=== PATIENT | male | born 1985 | race Caucasian/White ===

== ENCOUNTER 2019-03-28 00:29 | Emergency (ER) | payer SELFPAY ==
[~2019-03-28] VITALS: Ht 170.2 cm; Wt 100.0 kg
[2019-03-28 00:35] VITALS: BP 156/86; PULSE 79; RESP 18; Ht 170.2 cm; Wt 100.0 kg
[2019-03-28] MEDS ORDERED: KETOROLAC 30 MG INJ IM STA (01:55)
[2019-03-28] MEDS ORDERED: CYCL10TA7 PO (01:58)
[2019-03-28] MEDS ORDERED: MED4DP PO (01:58)
[2019-03-28] MEDS ORDERED: IBUP-1542 PO (01:58)
[2019-03-28] MEDS ORDERED: CYCLOBENZAPRINE 10 MG TAB PO ONE (02:00)
--- NOTE | 2019-03-28 04:52 | ERD ---
ER Documentation Chief Complaint Chief Complaint PATIENT BIB SELF, C/O NECK PAIN RADIATING TO SHOULDER X 1 MONTH HPI 34-year-old male presenting to the ED for neck pain with radiating symptoms to his right shoulder x1 month. Patient denies any injury. Patient has never had a neck or back injury. Patient states the pain is a 10 out of 10. Patient denies any allergies to medications. Patient denies any shortness of breath chest pain headache fever chills nausea or vomiting. Patient states the symptoms are worse if he turns his neck the wrong way. Muscle wasting loss of weight or weakness in the extremity. Patient states the symptoms come and go and lasts only a few seconds. ROS All systems reviewed and are negative except as per history of present illness. Medications Home Meds Active Scripts Cyclobenzaprine Hcl* (Cyclobenzaprine Hcl*) 10 Mg Tablet, 10 MG PO TID, #15 TAB Prov:RAMAN VASQUEZ PA-C 03/28/19 Ibuprofen* (Motrin*) 600 Mg Tab, 600 MG PO Q6, #30 TAB Prov:RAMAN VASQUEZ PA-C 03/28/19 Methylprednisolone* (Medrol* DOSE PACK) 4 Mg/Dose-Pack Tab.ds.pk, 4 MG PO . DIRECTED for 10 Days, PACKET Prov:RAMAN VASQUEZ PA-C 03/28/19 Allergies Allergies: Coded Allergies: No Known Allergy (Unverified , 03/28/19) PMhx/Soc Medical and Surgical Hx: pt denies Medical Hx, pt denies Surgical Hx Hx Alcohol Use: Yes (OCCASIONALLY) Hx Substance Use: No Hx Tobacco Use: No Smoking Status: Never smoker FmHx Family History: No diabetes, No coronary disease, No other Physical Exam Vitals Vital Signs Date Temp Pulse Resp B/P (MAP) Pulse Ox O2 O2 Flow FiO2 Time Delivery Rate 03/28/19 97.0 79 18 156/86 98 00:35 (109) Physical Exam Const: Moderate distress Neck: Full range of motion. No meningismus. Ihsan's compression provokes symptoms, muscle spasm noted right lateral neck muscles. Resp: Clear to auscultation bilaterally Cardio: Regular rate and rhythm, no murmurs Abd: Soft, non tender, non distended. Normal bowel sounds Ext: No cyanosis, or edema, patient has 5 out of 5 C3, C4, C5 myotome examination. Patient has no decreased sensation in upper extremities Results 24 hrs Current Medications Medications Dose Sig/Dorcas Start Time Status Last (Trade) Ordered Route PRN Stop Time Admin Dose Reason Admin Ketorolac 30 mg ONCE STAT 03/28/19 DC 03/28/19 Tromethamine IM 01:55 02:18 (Toradol) 03/28/19 01:57 10 mg ONCE ONCE 03/28/19 DC 03/28/19 Cyclobenzapri PO 02:00 02:17 ne HCl 03/28/19 02:01 (Flexeril) Procedures/MDM Medications given in ER: Cyclobenzaprine Toradol Patient tolerated medication well with no adverse reactions. Patient reported improvement in pain. Medical decision makin-year-old male presenting to the ED for neck pain with radiating symptoms to his right shoulder. Patient denies any traumatic injury. There is no stairstepping felt on palpation to the cervical spine. Patient does have neck spasm on the right side the patient is able to move his neck and has full range of motion. Patient has a little bit of pain when he turns his neck to the right. Ihsan compression provoked to the patient's symptoms. At this time I have low suspicion for cervical fracture, meningitis. The patient was given cyclobenzaprine and Toradol in the ED. Upon reevaluation the patient appears to be doing much better. The patient will be treated outpatient with cyclobenzaprine and Motrin and Medrol Dosepak. Advised patient follow-up primary care provider in 1 to 2 days regarding this visit. I advised patient if symptoms worsen return to ER immediately. Patient is in compliant with the treatment plan had no further questions on discharge Prescription for home: Motrin Cyclobenzaprine Medrol Dosepak I have discussed with the patient proper use and common side effects to expert with the medication . I advised the patient/family to speak with the pharm acist dispensing the medication to be advised of any potential drug interactions with other medication or supplements they may be taking. Discharge: At this time, patient is stable for discharge and outpatient management. I have instructed the patient to follow-up with his\her primary care physician in 1 to 2 days. I have discussed with the patient the possibility of needing to see a specialist for further work-up and imaging studies if symptoms persist. I have instructed the patient to promptly return to the ER for any new or worsening symptoms including increased pain, fever, nausea, vomiting, weakness or LOC. The patient and\or family expressed understanding of and agreement with this plan. All questions were answered. Home care instructions were provided. Disclaimer: Inadvertent spelling and grammatical errors are likely due to EHR\dictation software use and do not reflect on the overall quality of patient care. Also, please note that the electronic time recorded on the note does not necessarily reflect the actual time of the patient encounter. Departure Diagnosis: Primary Impression: Neck pain Additional Impression: Muscle spasms of neck Condition: Stable Patient Instructions: Neck Pain, No Trauma Referrals: [facility] YOU HAVE RECEIVED A MEDICAL SCREENING EXAM AND THE RESULTS INDICATE THAT YOU DO NOT HAVE A CONDITION THAT REQUIRES URGENT TREATMENT IN THE EMERGENCY DEPARTMENT. FURTHER EVALUATION AND TREATMENT OF YOUR CONDITION CAN WAIT UNTIL YOU ARE SEEN IN YOUR DOCTORS OFFICE WITHIN THE NEXT 1-2 DAYS. IT IS YOUR RESPONSIBILITY TO MAKE AN APPOINTMENT FOR FOLOW-UP CARE. IF YOU HAVE A PRIMARY DOCTOR --you should call your primary doctor and schedule an appointment IF YOU DO NOT HAVE A PRIMARY DOCTOR YOU CAN CALL OUR PHYSICIAN REFERRAL HOTLINE AT IF YOU CAN NOT AFFORD TO SEE A PHYSICIAN YOU CAN CHOSE FROM THE FOLLOWING [facility] [address] [facility] [address] [facility] [address] [facility] [address] [facility] [address] [address] [facility]. [address] [facility]. [facility] YOU HAVE RECEIVED A MEDICAL SCREENING EXAM AND THE RESULTS INDICATE THAT YOU DO NOT HAVE A CONDITION THAT REQUIRES URGENT TREATMENT IN THE EMERGENCY DEPARTMENT. FURTHER EVALUATION AND TREATMENT OF YOUR CONDITION CAN WAIT UNTIL YOU ARE SEEN IN YOUR DOCTORS OFFICE WITHIN THE NEXT 1-2 DAYS. IT IS YOUR RESPONSIBILITY TO MAKE AN APPOINTMENT FOR FOLOW-UP CARE. IF YOU HAVE A PRIMARY DOCTOR --you should call your primary doctor and schedule and appointment IF YOU DO NOT HAVE A PRIMARY DOCTOR YOU CAN CALL OUR PHYSICIAN REFERRAL HOTLINE AT . IF YOU CAN NOT AFFORD TO SEE A PHYSICIAN YOU CAN CHOSE FROM THE FOLLOWING [facility] INSTITUTIONS: [facility] [address] [place] [address] [facility] [address] [place] [address] [facility] [address] [place] [address] [facility] Care 7 a.m.- 11 p.m. Every Day of the Week NO APPOINTMENT OR AUTHORIZATION NEEDED Additional Instructions: Return to this facility in 2 DAYS for a follow-up exam.Return sooner if your condition worsens. RAMAN VASQUEZ PA-C Mar 28, 2019 04:52
== END 2019-03-28 02:23 | disposition home or self-care (01) ==
LOC: FTE 00:29
DX: M54.2 Cervicalgia (principal); M62.838 Other muscle spasm
CPT/HCPCS: 96372; 99284; J1885